=== PATIENT | female | born 1965 | race Caucasian/White ===

== ENCOUNTER 2021-06-01 22:49 | Emergency (ER) | payer OTHER ==
[~2021-06-01] VITALS: Ht 177.8 cm; Wt 68.0 kg
[~2021-06-01 22:49] MED LIST: ALPRAZOLAM1 MG PO; ASPIRIN EC325 MG PO; BACTRIM DS1 TAB PO; CEPHALEXIN500 MG PO; FLEXERIL5 MG PO; FLUOXETINE20 MG PO; LEVOTHYROXIN100 MCG PO; NAPROSYN500 MG PO; PREVACID30 M3 PO; ZOFRAN ODT4 MG PO
[2021-06-01] MEDS ORDERED: NEURONTIN400 MG PO (23:12)
[2021-06-01] MEDS ORDERED: NAPROXEN500 MG PO (23:14)
[2021-06-01] MEDS ORDERED: PROZAC40 MG PO (23:15)
[2021-06-01] MEDS ORDERED: HYDROXYZINE HYD25 MG PO (23:15)
[2021-06-01] MEDS ORDERED: GENTAMICIN SULF5 ML OD (23:17)
[2021-06-01 23:19] VITALS: BP 152/97
== END 2021-06-01 23:28 | disposition home or self-care (01) ==
LOC: ED 22:49
DX: S05.01XA Injury of conjunctiva and corneal abrasion without foreign body, right eye, initial encounter (principal); F41.9 Anxiety disorder, unspecified; I25.10 Atherosclerotic heart disease of native coronary artery without angina pectoris; F17.210 Nicotine dependence, cigarettes, uncomplicated; W22.8XXA Striking against or struck by other objects, initial encounter

== ENCOUNTER 2021-08-02 14:18 | Emergency (ER) | payer OTHER ==
[~2021-08-02] VITALS: Ht 177.8 cm; Wt 73.0 kg
[2021-08-02] VITALS (9 sets, daily range): BP systolic 107–131; BP diastolic 65–108
[~2021-08-02 14:18] MED LIST changes: +GENTAMICIN SULF5 ML OD; +HYDROXYZINE HYD25 MG PO; +NAPROXEN500 MG PO; +NEURONTIN400 MG PO; +PROZAC40 MG PO
[2021-08-02 18:16] LABS: HEMATOCRIT 44.6 % (37.0-47.0); HEMOGLOBIN 14.9 g/dl (12.0-16.0); IMMATURE GRANULOCYTES 0.1 % (0.0-5.0); MEAN CELL VOLUME 91.4 fL CALC (80.0-100.0); MEAN CORPUSCULAR HGB 30.5 pG CALC (26.0-32.0); MEAN CORPUSCULAR HGB CONC 33.4 g/dL CAL (32.0-36.0); NEUT# 5.43 thou/uL (2.00-7.15); RED BLOOD COUNT 4.88 mill/uL (4.20-5.60); RED CELL DISTRI WIDTH 12.8 % (11.5-15.5)
[2021-08-02 18:28] LABS: ALBUMIN 4.6 g/dL (3.2-5.0); ALKALINE PHOSPHATASE 109 u/l (38-126); ANION GAP 15 (6-22 (CALC)); BILIRUBIN, TOTAL 0.4 mg/dL (0.0-1.4); BUN 24 mg/dL (7-17); BUN/CREATININE RATIO 25 (12-20 (CALC)); CARBON DIOXIDE 25 mmol/l (22-30); CHLORIDE 105 mmol/l (95-108); GFR 57 ML/MIN (>=60 (CALC)); GFR FOR AFR.AMER. > 60 ML/MIN (>=60 (CALC)); POTASSIUM 3.6 mmol/l (3.5-5.1); SGOT/AST 22 u/l (14-36); SODIUM 141 mmol/l (137-146)
[2021-08-02] MEDS ORDERED: GRISEOFULVIN M500 MG PO (21:52)
[2021-08-02] MEDS ORDERED: KEFLEX500 MG PO (21:53)
--- NOTE | 2021-08-04 11:10 | NUR ---
PRELIMINARY BC SHOWS GRAM (+) COCCI IN 1/[address] VIALS[address] RESULTS REPORTED TO DR ROBINS. MADE MULTIPLE UNSUCCESSFUL ATTEMPTS TO CONTACT PT. LVM REQUESTING PT TO CALL WITH ANY QUESTIONS OR RETURN TO ED IF EXPERIENCING ANY CONCERNING SYMPTOMS SUCH FEVER, CHEST PAIN, OR SHORTNESS OF BREATH. WILL FOLLOW UP WHEN FINAL RESULTS AVAILABLE.
--- NOTE | 2021-08-05 10:48 | NUR ---
RESULTS CALLED TO . ATTEMPTS TO CONTACT PATIENT AND NEXT OF KIN WENT UNANSWERED. WILL SEND CERTIFIED LETTER TO ADDRESS ON FILE.
--- NOTE | 2021-08-06 14:28 | NUR ---
LM on voicemail for pt to return call. Certifed letter sent to address on file regarding need for follow up [facility] due to blood culture results.
--- NOTE | 2021-08-06 14:46 | NUR ---
Pt returned call prior to letter being sent. Explained results of blood cultures. Pt states she is feeling much better, the swelling and redness around her ear has gone down and has not experienced any fever or chills. No other new symptoms. Reported this information to Dr Vance. No need to be re-evaluated in ED at this time per Dr Vance.
== END 2021-08-02 22:30 | disposition home or self-care (01) ==
LOC: ED 14:18
PROVIDERS: Family Medicine
DX: L03.811 Cellulitis of head [any part, except face] (principal); B35.0 Tinea barbae and tinea capitis; I25.10 Atherosclerotic heart disease of native coronary artery without angina pectoris; E78.5 Hyperlipidemia, unspecified; F41.9 Anxiety disorder, unspecified; F17.200 Nicotine dependence, unspecified, uncomplicated

== ENCOUNTER 2021-08-12 06:49 | Emergency (ER) | payer OTHER ==
[~2021-08-12] VITALS: Ht 177.8 cm; Wt 79.0 kg
[~2021-08-12 06:49] MED LIST changes: +GRISEOFULVIN M500 MG PO; +KEFLEX500 MG PO
[2021-08-12 07:12] VITALS: BP 152/89
[2021-08-12 07:15] VITALS: BP 163/101
[2021-08-12 07:30] VITALS: BP 145/95
[2021-08-12] MEDS ORDERED: OMNICEF300 M1 PO (07:42)
[2021-08-12] MEDS ORDERED: GRISEOFULVIN M500 MG PO (07:42)
[2021-08-12 07:45] VITALS: BP 154/98
[2021-08-12 08:00] VITALS: BP 150/93
[2021-08-12 08:15] VITALS: BP 150/93
== END 2021-08-12 08:10 | disposition home or self-care (01) ==
LOC: ED 06:49
DX: B35.0 Tinea barbae and tinea capitis (principal); L03.811 Cellulitis of head [any part, except face]; F41.9 Anxiety disorder, unspecified; I25.10 Atherosclerotic heart disease of native coronary artery without angina pectoris; E78.5 Hyperlipidemia, unspecified; F17.200 Nicotine dependence, unspecified, uncomplicated

== ENCOUNTER 2021-09-19 16:25 | Inpatient (IN) | payer OTHER ==
[~2021-09-19] VITALS: Ht 177.8 cm; Wt 70.0 kg
[~2021-09-19 16:25] MED LIST changes: -LEVOTHYROXIN100 MCG PO; +LEVOTHYROXIN75 MCG PO; +OMNICEF300 M1 PO
--- NOTE | 2021-09-19 16:29 | NUR ---
PT ARRIVES VIA EMS FOR ABSCESS ON RIGHT MID THIGH AND BEHIND RIGHT EAR. PT A&O X 3. NO ACUTE DISTRESS, RESTING COMFROTABLY ON STRETCHER IN ROOM 3.
[2021-09-19 16:33] VITALS: BP 119/68
[2021-09-19 17:01] VITALS: BP 101/51
[2021-09-19 18:09] LABS: HEMATOCRIT 38.7 % (37.0-47.0); IMMATURE GRANULOCYTES 0.4 % (0.0-5.0); MEAN CELL VOLUME 93.5 fL CALC (80.0-100.0); MEAN CORPUSCULAR HGB 30.9 pG CALC (26.0-32.0); MEAN CORPUSCULAR HGB CONC 33.1 g/dL CAL (32.0-36.0); NEUT# 10.33 thou/uL (2.00-7.15); RED BLOOD COUNT 4.14 mill/uL (4.20-5.60); RED CELL DISTRI WIDTH 13.3 % (11.5-15.5)
[2021-09-19 18:13] LABS: HEMOGLOBIN 12.8 g/dl (12.0-16.0)
--- NOTE | 2021-09-19 18:20 | NUR ---
PT ADVISED OF PENDING ADMIT FOR CARE AND TX OF ABSCESSED AREA AT RT ANTERIOR THIGH.
[2021-09-19 18:26] LABS: ALBUMIN 3.7 g/dL (3.2-5.0); ALKALINE PHOSPHATASE 83 u/l (38-126); ANION GAP 10 (6-22 (CALC)); BILIRUBIN, TOTAL 0.5 mg/dL (0.0-1.4); BUN 16 mg/dL (7-17); BUN/CREATININE RATIO 18 (12-20 (CALC)); CARBON DIOXIDE 29 mmol/l (22-30); CHLORIDE 100 mmol/l (95-108); CREATININE 0.9 mg/dL (0.5-1.0); GFR > 60 ML/MIN (>=60 (CALC)); GFR FOR AFR.AMER. > 60 ML/MIN (>=60 (CALC)); POTASSIUM 3.1 mmol/l (3.5-5.1); SGOT/AST 17 u/l (14-36); SODIUM 135 mmol/l (137-146); TOTAL PROTEIN 6.9 g/dL (6.3-8.2)
[2021-09-19 19:21] VITALS: BP 114/95
--- NOTE | 2021-09-19 19:31 | NUR ---
report provided to lori rosales
[2021-09-19 20:00] VITALS: BP 131/84
--- NOTE | 2021-09-19 21:30 | NUR ---
PT ASSIGNED TO ROOM 278
--- NOTE | 2021-09-19 21:55 | NUR ---
REPORT TO CASSANDRA
--- NOTE | 2021-09-19 22:03 | NUR ---
PT TO FLOOR VIA STRETCHER. A/O. GRACE.
[2021-09-19 22:08] VITALS: BP 117/63
--- NOTE | 2021-09-19 23:00 | NUR ---
PATIENT ADMITTED FROMER VIA STRETCHER WITH ER STAFF IN ATTENDANCE. JIGAR IS ABLE TO TRANSFER TO THE BED BY HERSELF. AWAKE ALERT AND ORIENTEDX3. ADMITTED FOR RIGHT THIGH CELLULITIS AND ABCESS. PATIENT WITH AREA TO RIGHT THIGH THAT IS RED, HARD,SWOLLEN, HOT TO TOUCH AND PAINFUL-STATES THAT IT SARTED ON SATURDAY. DRAINING SMALLAMT OF BLOODY PURULENT DRAINAGE-WOUND CULTURE OBTAINED AND SENT TO LAB. WOUND COVERED WITH LARGE BANDAID. PATIENT ALSO STATES THAT SHE HAS AREA BEHIND RIGHT EAR THAT SHE HAS BEEN TREATING RECENTLY WITH ANTIBIOTICS THAT IS STILL BOTHERING HER-NO OBVIOUS WOUND NOTED-ONLY SLIGHT SWELLING WITH NO DRAINAGE. PATIENT WITH IV SITE TO RAC-HEALTHY WITH GOOD BLOOD RETURN. LUNGS ARE CLEAR. ABD IS SOFT WITH ACTIVE BS. LAST BM WAS 09/18. DENIES ANY PROBLEMS WITH URINATION. NO PERPHERAL EDEMA, PULSES ARE PALPABLE. PROVIDE WITH HEALTHY CHOICE TURKEY DINNER AND DRINK. ORIENTED TO ROOM AND SURROUNDINGS. MEDICATED FOR PAIN WITH LORTAB 5/325MG PO FOR PAIN-9/10 ON PAIN SCALE AND FOR ANXIETY WITH XANAX 1MG PO. INSTRUCTED ON U SE OF NURSE CALL LIGHT SYSTEM AND TV REMOTE. SAFEETY PRECAUTIONS REINFORCED. CALL LIGHT IN REACH. WILL CONT TO MONITOR.
--- NOTE | 2021-09-20 01:00 | NUR ---
RESING IN BED AT THIS TIME-NO COMPLANITS AT THIS TIME. ZOSYN INFUSED ORDERED. CALL LIGHT IN REACH. WILL CONT TO MONITOR.
[2021-09-20 04:30] VITALS: BP 144/64
--- NOTE | 2021-09-20 04:58 | NUR ---
PATIENT RESTING IN BED-TEMP IS 101.6-MESSAGE SENT TO DR. ROMY SAXENA PT TEMP- AWAITING MESSAGE BACK. MEDICATED FOR RIGHT THIGH PAIN WITH LORTAB 5/325MG PO. CALL LIGHT IN REACH. WILL CONT TO MONITOR.
[2021-09-20 05:18] LABS: HEMATOCRIT 41.5 % (37.0-47.0); HEMOGLOBIN 13.6 g/dl (12.0-16.0); MEAN CELL VOLUME 94.3 fL CALC (80.0-100.0); MEAN CORPUSCULAR HGB 30.9 pG CALC (26.0-32.0); MEAN CORPUSCULAR HGB CONC 32.8 g/dL CAL (32.0-36.0); RED BLOOD COUNT 4.4 mill/uL (4.20-5.60)
[2021-09-20 05:41] LABS: ANION GAP 14 (6-22 (CALC)); BUN 12 mg/dL (7-17); BUN/CREATININE RATIO 15 (12-20 (CALC)); CARBON DIOXIDE 25 mmol/l (22-30); CHLORIDE 100 mmol/l (95-108); CREATININE 0.8 mg/dL (0.5-1.0); GFR > 60 ML/MIN (>=60 (CALC)); GFR FOR AFR.AMER. > 60 ML/MIN (>=60 (CALC)); POTASSIUM 3.6 mmol/l (3.5-5.1); SODIUM 136 mmol/l (137-146)
--- NOTE | 2021-09-20 05:45 | NUR ---
NEW ORDER FROM DR. STANTON OBTAINED. PATIENT MEDICATED FOR 101.6 TEMP WITH MOTRIN 600MG PO. ZOSYN HUNG ORDERED VIA [facility] SITE. [facility] WILL CONT TO MONITOR,
--- NOTE | 2021-09-20 07:10 | NUR ---
RECIEVED REPORT FROM CASSANDRA MARTINEZ.
--- NOTE | 2021-09-20 08:29 | NUR ---
S: USMAN VALLEJO is a 56 F who presents with cellulitis. She has a history of thyroid disease, anxiety, coronary artery disease, PTSD, and hyperlipidemia. All medications in patient's chart were reviewed. O: VS: BP 144/64 mmHg, P 90 bpm, RR 22 bpm, T 98.3 F W 70 kg, HT 5 ft 10 in, Scr= 0.8 mg/dL, CrCl= 86.77 mL/min A: Blood culture is pending. Wound culture is pending. P: Patient is on Zosyn 3.375 g IV Q6H. Vancomycin ordered for pharmacy to dose. Start Vancomycin 1G IV BID. Vancomycin trough is drawn before the 4th dose on 09/21/2021 at 0830. Vancomycin goal trough is between 10-15 mcg/ml. Pharmacy will follow and or advise on antibiotics use as needed.
[2021-09-20 08:50] VITALS: BP 93/55
--- NOTE | 2021-09-20 08:50 | NUR ---
PT RESTING IN LOW FOWLERS POSITION. ASSESSMENT AND VITALS COMPLETED. HEART RHYTHM NORMAL . LUNG SOUNDS/RESPIRATIONS UNLABORED WITH WHEEZING ON ROOM AIR. BOWEL SOUNDS ACTIVE. RAC #20G PATENT . PT C/O PAIN WILL MEDICATE PER EMAR. PT DRESSING TO RIGHT THIGH SOILED WILL REPLACE.PT DENIES ADDITIONAL NEEDS AT THE MOMENT. ALL SAFETY PRECAUTIONS IN PLACE WITH CALL LIGHT IN REACH.
[2021-09-20 09:24] VITALS: BP 93/55
[2021-09-20] MEDS ORDERED: FLUOXETINE20 MG PO (10:53)
[2021-09-20] MEDS ORDERED: BUPROPION100 MG PO (10:57)
--- NOTE | 2021-09-20 10:58 | NUR ---
CALLED AND SPK WITH DR.M JASON PEREZ CONSULT
[2021-09-20] MEDS ORDERED: PROAIR HFA108 MCG/AC PO (10:59)
[2021-09-20] MEDS ORDERED: RESTORIL15 M1 PO (11:01)
[2021-09-20] MEDS ORDERED: IBUPROFEN600 MG PO (11:04)
[2021-09-20] MEDS ORDERED: LOTRISONE EX (11:08)
--- NOTE | 2021-09-20 12:54 | NUR ---
PT IN HIGH FOWLERS POSITION EATING LUNCH . PT RESPIRATIONS NONLABORED. PT REQUESTED A DRINK . DRINK PROVIDED. PT DENIES ADDITIONAL NEEDS AT THE MOMENT . ALL SAFETY PRECAUTIONS IN PLACE WITH CALL LIGHT IN REACH.
[2021-09-20 14:32] VITALS: BP 118/84
--- NOTE | 2021-09-20 16:35 | NUR ---
PT RESTING IN LEFT LATERAL POSITION . PT REPORTS MINIMAL PAIN. PT REQUESTED A BEVERAGE.BEVERAGE DELIVERED. PREOP CONSENT OBTAINED PT DENIES ANY QUESTIONS AT THE MOMENT. PT DENIES ADDITIONAL NEEDS AT THE MOMENT . ALL SAFETY PRECAUTIONS IN PLACE WITH CALL LIGHT IN REACH.
[2021-09-20 16:42] VITALS: BP 109/62
[2021-09-20 19:06] VITALS: BP 121/62
--- NOTE | 2021-09-20 20:03 | NUR ---
resting in bed a/o x 3 respirations even and unlabored.does have some expiratory wheezes noted and diminished throughout. bs active belly soft and round. r thigh dressing noted cdi area surrounding dressing hot to touch and red. no ble edema noted. medicated for pain and anxiety per mar. piv wdl bed low and locked call ley in reach and side rails up.
--- NOTE | 2021-09-20 23:59 | NUR ---
RESTING IN BED EYES CLOSED RESPIRATIONS EVEN AND UNLABORED. NO C/O PAIN AT THIS TIME NO NEEDS
[2021-09-21] VITALS (12 sets, daily range): BP systolic 90–117; BP diastolic 43–66
--- NOTE | 2021-09-21 04:05 | NUR ---
NO ACUTE EVENTS OVERNIGHT MEDICATED FOR PAIN PER MAR SEVERAL TIMES
[2021-09-21 05:28] LABS: HEMATOCRIT 34.4 % (37.0-47.0); HEMOGLOBIN 11.5 g/dl (12.0-16.0); IMMATURE GRANULOCYTES 0.4 % (0.0-5.0); MEAN CELL VOLUME 93.5 fL CALC (80.0-100.0); MEAN CORPUSCULAR HGB 31.3 pG CALC (26.0-32.0); MEAN CORPUSCULAR HGB CONC 33.4 g/dL CAL (32.0-36.0); NEUT# 6.54 thou/uL (2.00-7.15); RED BLOOD COUNT 3.68 mill/uL (4.20-5.60); RED CELL DISTRI WIDTH 13.2 % (11.5-15.5)
[2021-09-21 05:50] LABS: ALKALINE PHOSPHATASE 81 u/l (38-126); ANION GAP 6 (6-22 (CALC)); BILIRUBIN, TOTAL 0.3 mg/dL (0.0-1.4); BUN 15 mg/dL (7-17); BUN/CREATININE RATIO 20 (12-20 (CALC)); CARBON DIOXIDE 29 mmol/l (22-30); CHLORIDE 103 mmol/l (95-108); CREATININE 0.8 mg/dL (0.5-1.0); GFR > 60 ML/MIN (>=60 (CALC)); GFR FOR AFR.AMER. > 60 ML/MIN (>=60 (CALC)); MAGNESIUM 2.2 mg/dL (1.6-2.3); POTASSIUM 3.5 mmol/l (3.5-5.1); SGOT/AST 19 u/l (14-36); SODIUM 135 mmol/l (137-146); TOTAL PROTEIN 5.6 g/dL (6.3-8.2)
[2021-09-21 05:51] LABS: ALBUMIN 2.9 g/dL (3.2-5.0)
--- NOTE | 2021-09-21 07:00 | NUR ---
RECIEVED REPORT FROM KWAME MARTINEZ.
--- NOTE | 2021-09-21 07:30 | NUR ---
PT RESTING IN LOW FOWLERS POSITION. A/OX3 ASSESSMENT AND VITAL SIGNS COMPLETED. PT NPO AT THE MOMENT. HEART RHYTHM NORMAL . RESPIRATIONS UNLABORED WITH WHEEZING. BOWEL SOUNDS ACTIVE. PT C/O PAIN IN IV SITE RAC. WILL REMOVE DUE TO PAIN/REDNESS AROUND SITE NOTED. PT REQUESTED SHOWER. SHOWER STARTED BY AID. PT DENIES ADDITIONAL NEEDS AT THE MOMENT. ALL SAFETY PRECAUTIONS IN PLACE WITH CALL LIGHT IN REACH.
--- NOTE | 2021-09-21 09:40 | NUR ---
PT TRANSFERED TO OR VIA STRETCHER IN STABLE CONDITION.
--- NOTE | 2021-09-21 11:50 | NUR ---
PT RETURNED TO [place] VIA [facility] ACCOMPANIED BY STAFF.
--- NOTE | 2021-09-21 12:10 | NUR ---
PT RESTING IN SEMI FOWLERS POSITION . HEART RHYTHM NORMAL .RESPIRATIONS UNLABORED WITH WHEEZING. BOWEL SOUNDS ACTIVE PT NO LONGER NPO. PT EDUCATED ON IS AND SCD . PT VERBALLY STATED UNDERSTANDING. PT C/O PAIN WILL MEDICATE PER EMAR. SURGICAL DRESSING CDI. PT REQUESTED LUNCH, LUNCH PROVIDED. PT DENIES ADDITIONAL NEEDS AT THE MOMENT. ALL SAFETY PRECAUTIONS IN PLACE WITH CALL LIGHT IN REACH.
--- NOTE | 2021-09-21 12:33 | NUR ---
S: USMAN VALLEJO is a 56 F who presents with cellulitis. She has a history of thyroid disease, anxiety, coronary artery disease, PTSD, and hyperlipidemia. All medications in patient's chart were reviewed. O: VS: BP 102/61 mmHg, P 73 bpm, RR 17 bpm,T 99.3 F W 70 kg, HT 5 ft 10 in, Scr= 0.8 mg/dL, CrCl= 86.77 ml/min Vancomycin trough on 09/21/2021 at 0805 is 7 ug/mL. A: Preliminary blood cultures show no growth after 24 hours. Wound culture is pending. P: Patient is on Zosyn 3.375 g IV Q6H. Vancomycin ordered for pharmacy to dose. Start Vancomycin 1.25 g IV BID. Vancomycin trough is drawn before the 4th dose on 09/23/2021 at 0830 . Vancomycin goal trough is between 10-15 mcg/ml. Pharmacy will follow and or advise on antibiotics use as needed.
--- NOTE | 2021-09-21 15:46 | NUR ---
PT RESTING IN SEMI FOWLERS POSITION, WITH VISITOR AT BEDSIDE. PT STATES NO PAIN AT THE MOMENT. PT DENIES ADDITIONAL NEEDS AT THE MOMENT. ALL SAFETY PRECAUTIONS IN PLACE WITH CALL LIGHT IN REACH.
--- NOTE | 2021-09-21 20:24 | NUR ---
RESTING IN BED A/O X 3. RESPIRATIONS EVEN AND UNLABORED EXPIRATORY WHEEZES NOTED. BS ACTIVE BELLY SOFT AND ROUND. DRESSING TO RIGHT THIGH LOOSE PT CONTINUES TO PICK AT DRESSING EDUCATED ON INFECTION RISK. STATES UNDERSTANDING. AREA AROUND DRESSING RED AND HOT TO TOUCH. NO BLE EDEMA NOTED. MEDICATED FOR PAIN PER MAR. PIV WDL BED LOW AND LOCKED CALL CARPENTER IN REACH SIDE RAILS UP.
--- NOTE | 2021-09-21 22:07 | NUR ---
DRESSING TO RIGHT THIGH CHANGED PER ORDER PT TOLERATED WELL
[2021-09-22] VITALS (7 sets, daily range): BP systolic 84–121; BP diastolic 43–63
--- NOTE | 2021-09-22 00:29 | NUR ---
RESTING IN BED EYES CLOSED RESPIRATIONS EVEN AND UNLABORED. NO NEEDS AT THIS TIME. NO C/O PAIN DRESSING CDI
--- NOTE | 2021-09-22 04:29 | NUR ---
NO ACUTE EVENTS OVERNIGHT, PT RESTED WELL
--- NOTE | 2021-09-22 07:00 | NUR ---
REPORT RECIEVED MICHELLE PUENTE
--- NOTE | 2021-09-22 09:15 | NUR ---
PT AWAKE WATCHING TV AT THIS TIME. DRESSING IS CDI TO THE RIGHT UPPER THIGH. STATES PAIN. PAIN MEDICATION GIVEN SEE EMAR. 20G RW SL FLUSHED WITH NO RESISTANCE. STATES NO OTHER NEEDS AT THIS TIME. FALL/SAFETY PRECAUTIONS IN PLACE. CALL LIGHT WITHIN REACH.
--- NOTE | 2021-09-22 10:10 | NUR ---
DRESSING CHANGE #1 PERFORMED. PT TOLERATED WELL. FALL/SAFTEY PRECATION IN PLACE. CALL LIGHT WITHIN REACH
--- NOTE | 2021-09-22 12:45 | NUR ---
PT RESTING WITH EYES CLOSED UPON ENTERING ROOM. STATES MILD PAIN ON LEGS. DENIED PAIN MEDICATION. DRESSING IS CDI. IV PATENT. FALL/SAFTEY PRECAUTION IN PLACE. CALL LIGHT WITHIN REACH
--- NOTE | 2021-09-22 15:42 | NUR ---
DRESSING #2 CHANGE PERFORMED. PT TOLERATED WELL. FALL/SAFTEY PRECAUTION IN PLACE. CALL LIGHT WITHIN REACH
--- NOTE | 2021-09-22 20:00 | NUR ---
PT IN BED AWAKE, NO DISTRESS NOTED, BED ALARM ON AND IN LOW POSITION, CALL LIGHT IN REACH
--- NOTE | 2021-09-23 00:12 | NUR ---
PT IN BED AWAKE, NO DISTRESS NOTED, BED ALARM ON AND IN LOW POSITION, CALL LIGHT IN REACH
--- NOTE | 2021-09-23 04:10 | NUR ---
NO EVENTS OVERNIGHT, PT IN BED ASLEEP, NO DISTRESS NOTED, BED IN LOW POSITION, CALLL LIGHT IN REACH
[2021-09-23 04:41] VITALS: BP 109/54
[2021-09-23 05:06] LABS: HEMATOCRIT 32.3 % (37.0-47.0); HEMOGLOBIN 10.3 g/dl (12.0-16.0); IMMATURE GRANULOCYTES 0.8 % (0.0-5.0); MEAN CELL VOLUME 95.6 fL CALC (80.0-100.0); MEAN CORPUSCULAR HGB 30.5 pG CALC (26.0-32.0); MEAN CORPUSCULAR HGB CONC 31.9 g/dL CAL (32.0-36.0); NEUT# 4.04 thou/uL (2.00-7.15); RED BLOOD COUNT 3.38 mill/uL (4.20-5.60)
[2021-09-23 05:18] LABS: ALBUMIN 2.7 g/dL (3.2-5.0); ALKALINE PHOSPHATASE 65 u/l (38-126); ANION GAP 7 (6-22 (CALC)); BUN 13 mg/dL (7-17); BUN/CREATININE RATIO 15 (12-20 (CALC)); CARBON DIOXIDE 30 mmol/l (22-30); CHLORIDE 105 mmol/l (95-108); CREATININE 0.9 mg/dL (0.5-1.0); GFR > 60 ML/MIN (>=60 (CALC)); GFR FOR AFR.AMER. > 60 ML/MIN (>=60 (CALC)); SGOT/AST 16 u/l (14-36); SODIUM 138 mmol/l (137-146); TOTAL PROTEIN 5.3 g/dL (6.3-8.2)
[2021-09-23 05:22] LABS: BILIRUBIN, TOTAL 0.1 mg/dL (0.0-1.4)
--- NOTE | 2021-09-23 09:52 | NUR ---
ASSESSMENT AND VITALS ALLOWED. PT HAS ANXIETY TOWARDS WOUND CARE. EDUCATED ON WOUND CARE AND INFECTION PRECAUTIONS. PT VERBALIZES UNDERSTANDING . PT REMAINS UNEASY OVER WOUND CARE. IV 29 RFA FLUSHED. PT C/O PAIN. MEDICATED SEE EMAR FALL/SAFTEY PRECAUTION IN PLACE. CALL LIGHT WITHIN REACH.
[2021-09-23] MEDS ORDERED: FLUOXETINE HCL10 MG PO (12:17)
[2021-09-23] MEDS ORDERED: LORTAB 5/3255 MG PO (12:18)
[2021-09-23] MEDS ORDERED: AVIDOXY100 MG PO (12:20)
--- NOTE | 2021-09-23 13:11 | NUR ---
PT RESTING IN BED. EDUACTED ON WOUND CARE DC INSTRUCTIONS. PT VERBALIZES UNDERATANDING. FALL/SAFTEY PRECAUTION IN PLACE. CALL LIGHT WITHIN REACH
[2021-09-23] MEDS ORDERED: MINOCYCLINE100 MG PO (15:29)
[2021-09-23 15:35] VITALS: BP 98/62
[2021-09-23 15:43] VITALS: BP 98/62
--- NOTE | 2021-09-23 16:43 | NUR ---
Discharge instructions given. Patient verbalizes understanding of same. Discharged in stable condition via Wheelchair to Home with staff. All belongings sent with pt.
== END 2021-09-23 16:42 | disposition home or self-care (01) | DRG 572 ==
LOC: ED 16:25 → MS2 19:32
PROVIDERS: Nurse Practitioner; ADMIT Internal Medicine; ATTEND Internal Medicine
PROC: 0JBL0ZZ Excision of Right Upper Leg Subcutaneous Tissue and Fascia, Open Approach (ICD-10-PCS; principal; 2021-09-21)
DX: L02.415 Cutaneous abscess of right lower limb (principal); L03.115 Cellulitis of right lower limb; I25.10 Atherosclerotic heart disease of native coronary artery without angina pectoris; E78.5 Hyperlipidemia, unspecified; E03.9 Hypothyroidism, unspecified; F43.10 Post-traumatic stress disorder, unspecified; F41.9 Anxiety disorder, unspecified; F17.200 Nicotine dependence, unspecified, uncomplicated; B95.61 Methicillin susceptible Staphylococcus aureus infection as the cause of diseases classified elsewhere; Z20.822 Contact with and (suspected) exposure to COVID-19
CPT/HCPCS: J0131; J3370; Q9967

== ENCOUNTER 2021-10-04 14:39 | Emergency (ER) | payer OTHER ==
[~2021-10-04] VITALS: Ht 177.8 cm; Wt 77.0 kg
[~2021-10-04 14:39] MED LIST changes: +AVIDOXY100 MG PO; +BUPROPION100 MG PO; +FLUOXETINE HCL10 MG PO; +IBUPROFEN600 MG PO; +LORTAB 5/3255 MG PO; +LOTRISONE EX; +MINOCYCLINE100 MG PO; +PROAIR HFA108 MCG/AC PO; +RESTORIL15 M1 PO
[2021-10-04 15:14] VITALS: BP 126/89
[2021-10-04 16:21] LABS: IMMATURE GRANULOCYTES 0.2 % (0.0-5.0); MEAN CELL VOLUME 95.9 fL CALC (80.0-100.0); MEAN CORPUSCULAR HGB 30.3 pG CALC (26.0-32.0); MEAN CORPUSCULAR HGB CONC 31.6 g/dL CAL (32.0-36.0); NEUT# 2.82 thou/uL (2.00-7.15); RED BLOOD COUNT 4.12 mill/uL (4.20-5.60); RED CELL DISTRI WIDTH 14.3 % (11.5-15.5)
[2021-10-04 16:22] LABS: HEMATOCRIT 39.5 % (37.0-47.0); HEMOGLOBIN 12.5 g/dl (12.0-16.0)
[2021-10-04 16:33] LABS: ANION GAP 9 (6-22 (CALC)); BUN 25 mg/dL (7-17); BUN/CREATININE RATIO 27 (12-20 (CALC)); CARBON DIOXIDE 25 mmol/l (22-30); CHLORIDE 108 mmol/l (95-108); CREATININE 0.9 mg/dL (0.5-1.0); GFR > 60 ML/MIN (>=60 (CALC)); GFR FOR AFR.AMER. > 60 ML/MIN (>=60 (CALC)); POTASSIUM 3.7 mmol/l (3.5-5.1); SODIUM 139 mmol/l (137-146)
[2021-10-04] MEDS ORDERED: KEFLEX500 MG PO (18:37)
[2021-10-04] MEDS ORDERED: VIBRAMYCIN100 M2 PO (18:39)
== END 2021-10-04 18:54 | disposition home or self-care (01) ==
LOC: ED 14:39
PROVIDERS: Nurse Practitioner
DX: L03.115 Cellulitis of right lower limb (principal); E78.5 Hyperlipidemia, unspecified; F17.210 Nicotine dependence, cigarettes, uncomplicated
CPT/HCPCS: Q9967

== ENCOUNTER 2022-06-22 13:20 | Emergency (ER) | payer OTHER ==
[~2022-06-22] VITALS: Ht 177.8 cm; Wt 72.7 kg
[~2022-06-22 13:20] MED LIST changes: +VIBRAMYCIN100 M2 PO
[2022-06-22 15:15] VITALS: BP 159/101
[2022-06-22 15:31] VITALS: BP 143/90
[2022-06-22 16:00] VITALS: BP 138/80
[2022-06-22] MEDS ORDERED: LEVOTHYROXIN175 MC1 PO (16:44)
[2022-06-22] MEDS ORDERED: HYDROCO/APAP1 TA9 PO (16:44)
[2022-06-22] MEDS ORDERED: NAPROXEN DR375 M1 PO (16:44)
[2022-06-22] MEDS ORDERED: PREDNISONE10 MG PO (16:44)
[2022-06-22 17:05] VITALS: BP 138/80
== END 2022-06-22 17:29 | disposition home or self-care (01) ==
LOC: ED 13:20
DX: M16.11 Unilateral primary osteoarthritis, right hip (principal); F41.9 Anxiety disorder, unspecified; E78.5 Hyperlipidemia, unspecified; F17.200 Nicotine dependence, unspecified, uncomplicated; Z85.43 Personal history of malignant neoplasm of ovary

== ENCOUNTER 2022-09-17 16:51 | Emergency (ER) | payer OTHER ==
[~2022-09-17] VITALS: Ht 177.8 cm; Wt 72.0 kg
[~2022-09-17 16:51] MED LIST changes: +HYDROCO/APAP1 TA9 PO; +LEVOTHYROXIN175 MC1 PO; +NAPROXEN DR375 M1 PO; +PREDNISONE10 MG PO
[2022-09-17 17:02] VITALS: BP 103/60
[2022-09-17 17:31] VITALS: BP 92/52
[2022-09-17] MEDS ORDERED: BACTRIM DS1 TAB PO (17:59)
[2022-09-17 18:00] VITALS: BP 102/63
[2022-09-17 18:10] VITALS: BP 102/63
== END 2022-09-17 18:36 | disposition home or self-care (01) ==
LOC: ED 16:51
DX: E78.5 Hyperlipidemia, unspecified (principal); F41.9 Anxiety disorder, unspecified; F17.200 Nicotine dependence, unspecified, uncomplicated; L02.415 Cutaneous abscess of right lower limb